=== PATIENT | female | born 1960 ===

== ENCOUNTER 2025-05-22 23:48 | Observation (INO) ==
[2025-05-23] MEDS: ONDANSETRON 4 MG/2 ML VIAL IV ONE (00:16)
[2025-05-23] MEDS: HYDROmorphone 0.5 MG/0.5 ML SYRINGE IV ONE (00:16)
[2025-05-23] MEDS: 0.9 % SODIUM CHLORIDE 1,000 ML IV ONE (00:16)
[2025-05-23 00:39] LABS: Basophils # (Auto) 0.02 K/mcL (0.00-0.30); Basophils % (Auto) 0.1 % (0.0-2.0); Eosinophils # (Auto) 0 K/mcL (0.00-0.70); Eosinophils % (Auto) 0 % (0.0-7.0); Hematocrit 40.4 % (34.1-44.9); Hemoglobin 13.6 g/dL (11.2-15.7); Lymphocytes # (Auto) 0.75 K/mcL (1.50-4.80); Lymphocytes % (Auto) 5.4 % (15.5-49.0); Mean Corpuscular HGB Conc 33.7 g/dL (31.0-36.0); Monocytes # (Auto) 1.22 K/mcL (0.10-0.90); Monocytes % (Auto) 8.7 % (1.0-12.0); Neutrophils % (Auto) 85.6 % (38.0-78.0); Platelet Count 208 K/mcL (140-440); RBC 4.44 M/mcL (3.59-5.38); WBC 14.0 K/mcL (4.5-11.0)
[2025-05-23 00:40] LABS: Bacteria,Urine Mod /hpf (0); Bilirubin,Urine NEGATIVE (Negative); Color,Urine LT. YELLOW; Glucose,Urine (UA) NEGATIVE (Negative); Ketones,Urine NEGATIVE (Negative); Leukocyte Esterase,Urine TRACE /uL (Negative); PH,Urine 6.5 (5.0-9.0); Protein,Urine 30 mg/dL (Negative); Specific Gravity,Urine 1.010 (1.000-1.035); Urobilinogen,Urine 0.2 mg/dL
[2025-05-23 00:44] LABS: ALT/SGPT 17 U/L (<40); AST/SGOT 19 U/L (<32); Albumin 3.7 gm/dL (3.2-5.2); Albumin/Globulin Ratio 1.1 (1.0-2.3); Alkaline Phosphatase 80 U/L (39-117); Anion Gap 15.0 (8.0-16.0); Bilirubin,Total 0.4 mg/dL (0.1-1.0); Blood Urea Nitrogen 16 mg/dL (8-23); Calcium 8.5 mg/dL (8.6-10.4); Carbon Dioxide 23 mmol/L (22-30); Chloride 93 mmol/L (96-108); Globulin 3.3 gm/dL (2.2-3.7); Glucose 135 mg/dL (70-105); Potassium 3.4 mmol/L (3.3-5.1); Sodium 131 mmol/L (133-145)
[2025-05-23] MEDS ORDERED: ONDANSETRON 4 MG/2 ML VIAL IV PRN ×3 (01:04→12:06)
[2025-05-23] MEDS: GENTAMICIN SULFATE IV SCH ×2 (01:31→11:01)
[2025-05-23] MEDS: ceFAZolin 2 GM in DEXTROSE 5% IN WATER 50 ML IV SCH ×2 (01:31→10:12)
[2025-05-23] MEDS: SODIUM CHLORIDE 0.9% IV SCH ×2 (01:31→11:01)
[2025-05-23] MEDS: cefTRIAXone 2 GM in DEXTROSE 5% IN WATER 50 ML IV ONE (01:34)
[2025-05-23] MEDS: CEFUROXIME 500 MG TABLET PO SCH (02:20)
[2025-05-23] MEDS: DEXTROSE 5%-1/2NS W/20MEQ KCL 1,000 ML IV SCH (02:22)
[2025-05-23] MEDS: 0.9 % SODIUM CHLORIDE 10 ML SYRINGE IV SCH ×2 (04:50→15:24)
[2025-05-23] MEDS ORDERED: GENTAMICIN SULFATE IV SCH (08:00)
[2025-05-23] MEDS ORDERED: SODIUM CHLORIDE 0.9% IV SCH (08:00)
[2025-05-23] MEDS: TRIAMTERENE/HYDROCHLOROTHIAZID 1 CAP CAPSULE PO SCH (08:31)
[2025-05-23] MEDS: FUROSEMIDE 20 MG TABLET PO SCH (08:31)
[2025-05-23] MEDS ORDERED: PROPOFOL 200 MG/20 ML VIAL IV ONE (09:25)
[2025-05-23] MEDS ORDERED: DEXAMETHASONE 10 MG/ML VIAL ONE (09:26)
[2025-05-23] MEDS ORDERED: LIDOCAINE 2% PF 5 ML VIAL ONE (09:26)
[2025-05-23] MEDS ORDERED: ONDANSETRON 4 MG/2 ML VIAL ONE (09:26)
[2025-05-23] MEDS: IOVERSOL 50 ML VIAL IJ ONE (11:29)
[2025-05-23] MEDS ORDERED: fentaNYL 100 MCG/2 ML VIAL ONE (11:35)
[2025-05-23] MEDS ORDERED: IPRATROPIUM/ALBUTEROL 3 ML AMPUL.NEB NEB PRN (11:43)
[2025-05-23] MEDS ORDERED: fentaNYL 100 MCG/2 ML VIAL IV PRN (11:43)
[2025-05-23] MEDS ORDERED: NALOXONE HCL 0.4 MG/ML VIAL IV PRN (11:43)
[2025-05-23] MEDS ORDERED: MEPERIDINE 25 MG/ML VIAL IV PRN (11:43)
[2025-05-23] MEDS ORDERED: diphenhydrAMINE 50 MG/ML VIAL IV PRN (11:43)
[2025-05-23] MEDS: LIDOCAINE 2% URO-JET 10 ML JEL.PF.APP UR ONE (11:51)
[2025-05-23] MEDS: ACETAMINOPHEN 1,000 MG/100 ML BAG IV ONE (12:05)
== END 2025-05-23 15:06 | disposition home or self-care (01) ==
LOC: ED 23:48 → MEDSUR 23:48
PROVIDERS: ADMIT Urology; ATTEND Urology